=== PATIENT | female | born 1955 | race Caucasian/White ===

== ENCOUNTER 2016-06-03 17:48 | Outpatient (CLI) | payer MEDICARE ==
[2016-06-03 18:09] LABS: BASOPHILS % 0.3 (0.0-1.5); LYMPHOCYTES # 2.4 # k/uL (0.6-4.0); MEAN CORPUSCULAR HEMOGLOBIN 30.8 pg (28.0-34.0); MONOCYTES # 0.5 # k/uL (0.0-0.9); MONOCYTES % 4.4 % (0.0-11.0); NEUTROPHILS # 8.1 # k/uL (1.4-7.7)
[2016-06-04 20:01] LABS: SERUM IRON 29 ug/dL (37-145)
== END 2016-06-03 17:50 ==
LOC: LAB 17:48
PROVIDERS: ATTEND Nurse Practitioner Family
DX: D72.829 Elevated white blood cell count, unspecified (principal); R71.0 Precipitous drop in hematocrit
CPT/HCPCS: 36415; 82728; 83540; 83550; 85025; 86140

== ENCOUNTER 2016-12-27 10:25 | Outpatient (CLI) | payer MEDICARE | END 2016-12-27 10:26 | LOC: LAB 10:25 | PROVIDERS: ATTEND Nurse Practitioner Family | DX: R19.4 Change in bowel habit (principal) | CPT/HCPCS: 87045; 87046; 87177; 87209; 87427; 89055 ==